=== PATIENT | male | born 1990 | race African-American/Black ===

== ENCOUNTER 2017-11-16 12:19 | Inpatient (IN) | payer MEDICARE, MEDICAID ==
[~2017-11-16] VITALS: Ht 182.9 cm; Wt 111.6 kg
[2017-11-16] MEDS ORDERED: OLAN15TA3 PO (12:37)
[2017-11-16] MEDS ORDERED: DIVA500T2 PO (12:37)
[2017-11-16] MEDS ORDERED: METF500T6 PO (12:37)
[2017-11-16] MEDS ORDERED: IV NORMAL SALINE 1000 ML BAG IV ONE ×2 (13:00→14:15)
[2017-11-16] MEDS ORDERED: ONDANSETRON 4 MG/2 ML VIAL IV ONE (13:00)
[2017-11-16 13:16] LABS: BASOPHILS % (AUTO) 0.5 % (0.0-2.0); EOSINOPHILS % (AUTO) 0.3 % (0.0-7.0); HEMATOCRIT 47.9 % (36.7-47.1); HEMOGLOBIN 16.5 g/dL (12.5-16.3); LYMPHOCYTES # (AUTO) 1.5 K/uL (20.0-40.0); LYMPHOCYTES % (AUTO) 20.2 % (20.5-51.5); MEAN CORPUSCULAR HEMOGLOBIN 32.1 uug (23.8-33.4); MEAN CORPUSCULAR HGB CONC 35 g/dL (32.5-36.3); MEAN CORPUSCULAR VOLUME 92.9 fL (73.0-96.2); MONOCYTES # (AUTO) 0.7 K/uL (2.0-10.0); MONOCYTES % (AUTO) 9.2 % (0.0-11.0); NEUTROPHILS # (AUTO) 5.3 K/uL (1.8-8.9); NEUTROPHILS % (AUTO) 69.8 % (38.5-71.5); PLATELET COUNT (AUTO) 168 K/uL (152-348); RED BLOOD CELL COUNT(AUTO) 5.16 MIL/uL (4.06-5.63); WHITE BLOOD COUNT (AUTO) 7.5 K/uL (3.6-10.2)
[2017-11-16] MEDS ORDERED: ONDANSETRON 4 MG/2 ML VIAL ONE (13:33)
--- NOTE | 2017-11-16 13:36 | NUR ---
Patient is resting comfortably on gurney. Mother is at bedside. Patient is calm & cooperative @this time.
[2017-11-16 14:07] LABS: CHLORIDE 98 mmol/L (98-107); CREATININE 1.4 mg/dL (0.6-1.3); POTASSIUM 4.1 mmol/L (3.5-5.1); UREA NITROGEN, BLOOD 11 mg/dL (7-18)
[2017-11-16 14:08] LABS: GLUCOSE 509 mg/dL (74-106)
[2017-11-16 14:09] LABS: ALANINE AMINOTRANSFERASE 15 U/L (16-63); ALKALINE PHOSPHATASE 61 U/L (50-136); BILIRUBIN,DIRECT 0.1 mg/dL (0.0-0.2); BILIRUBIN,TOTAL 0.6 mg/dL (0.2-1.0); LIPASE 102 U/L (73-393); TOTAL PROTEIN, SERUM 7.6 g/dL (6.4-8.2)
[2017-11-16 14:11] LABS: CARBON DIOXIDE 9 mmol/L (21-32)
[2017-11-16 14:24] LABS: ASPARTATE AMINOTRANSFERASE < 5 U/L (15-37)
[2017-11-16] MEDS ORDERED: IV 0.9% SODIUM CHLORID+ 20 KCL 1,000 ML IV ONE (14:24)
[2017-11-16] MEDS ORDERED: INSULIN REGULAR, HUMAN 100 UNIT in IV NORMAL SALINE 100 ML IV ONE ×2 (14:30)
[2017-11-16 14:33] LABS: *BILIRUBIN,URIN NEGATIVE (NEGATIVE); *BLOOD, URINE Trace-intact (NEGATIVE); *CLARITY,URINE CLEAR (CLEAR); *COLOR,URINE YELLOW (YELLOW); *KETONES,URINE 4+ (NEGATIVE); *PROTEIN,URINE TRACE (NEGATIVE); *UROBILINOGEN,URINE 0.2 E.U./dl (NORMAL); LEUKOCYTE ESTERASE ,URINE NEGATIVE (NEGATIVE); NITRITE, URINE NEGATIVE (NEGATIVE)
[2017-11-16 14:34] LABS: MAGNESIUM 1.8 mg/dL (1.8-2.4); PHOSPHOROUS 4.7 mg/dL (2.5-4.9); UGLUCOSE 2+ (NEGATIVE)
[2017-11-16] MEDS ORDERED: INSULIN REGULAR, HUMAN 100 UNITS in IV NORMAL SALINE 100 ML IV ONE ×2 (14:45)
[2017-11-16 14:46] LABS: BACTERIA,URINE NONE SEEN /HPF (NONE SEEN); RBC,URINE 0-3 /HPF (0-3); SQUAMOUS EPITHELIAL CELL,UR NONE SEEN /HPF (NONE SEEN); WBC,URINE 0-3 /HPF (0-3)
[2017-11-16] MEDS ORDERED: MAGNESIUM SULFATE/D5W 100 ML IV ONE (15:30)
[2017-11-16] MEDS ORDERED: IV D5W-0.45% NS +20 KCL 1,000 ML IV ONE (16:18)
--- NOTE | 2017-11-16 16:21 | NUR ---
FACILITY IN [place] WHERE PATIENT IS "CONSERVED" IS AWARE OF PENDING ADMISSION TO HOSPITAL.
[2017-11-16] MEDS: MAGNESIUM SULFATE IV SCH ×2 (17:02→17:17)
[2017-11-16] MEDS: NORMAL SALINE IV SCH ×2 (17:02→17:17)
[2017-11-16 17:04] VITALS: BP 140/83
--- NOTE | 2017-11-16 17:04 | NUR ---
Patient in from E.R. via JOSE ALFREDO aguilar. follows commands. VSS. 140/83, 98% Ra, RR 22, temp of 97.4 IV to RAC G20 infusing with insulin at 6units/hr. Accu-check of 246 poc at this time and insulin drip adjusted per protocol. IV also infusing with magnesium, and Normal saline + 20 Meq KCl at 240cc/hr. Dr. Blair called to be notified of admission awaiting orders. PT's mother at bedside.
[2017-11-16] MEDS ORDERED: MORPHINE SULFATE 2 MG/1 ML DISP.SYRIN IV PRN (17:30)
[2017-11-16] MEDS ORDERED: ACETAMINOPHEN 325 MG TABLET PO PRN (17:30)
[2017-11-16] MEDS ORDERED: LORAZEPAM 2 MG/1 ML VIAL IV PRN (17:30)
[2017-11-16] MEDS ORDERED: ONDANSETRON 4 MG/2 ML VIAL IV PRN (17:30)
[2017-11-16] MEDS ORDERED: MAG HYDROX/AL HYDROX/SIMETH 30 ML LIQUID UDC PO PRN (17:30)
[2017-11-16] MEDS: IV 1/2NS 1000 ML 1,000 ML IV PRN (17:55)
[2017-11-16 18:00] VITALS: BP 138/87
[2017-11-16] MEDS: INSULIN REGULAR, HUMAN 100 UNIT in IV NORMAL SALINE 99 ML IV PRN ×2 (19:03)
--- NOTE | 2017-11-16 19:30 | NUR ---
Report received. Patient AAOx3. NAD noted. On continuous Insulin drip per protocol. Assessment completed. PM care rendered. Patient cooperative. Addendum: 11/16/17 at 2052 by FRANCOIS LIMA RN Amended: Links added.
[2017-11-16 20:00] VITALS: BP 138/81
--- NOTE | 2017-11-16 20:00 | NUR ---
Seen by Dr. Glynn; discussed plan of care with patient. made aware of [id number]. Insulin drip increased to 5 units/H. Addendum: 11/16/17 at 2055 by FRANCOIS LIMA RN Amended: Links added. Addendum: 11/16/17 at 2056 by FRANCOIS LIMA RN Amended: Links added. Addendum: 11/16/17 at 2056 by FRANCOIS TAECHARATKIJ RN Amended: Links added.
--- NOTE | 2017-11-16 20:15 | NUR ---
Patient's mother Zoë visited with papers confirming she's the DPOA. Copy provided and in chart. Wants to talk to Dr. Glynn re: patient's care. MD notified. As per MD, he will talk to her in am. Patient's mother informed.
[2017-11-16 21:00] VITALS: BP 142/86
[2017-11-16 22:00] VITALS: BP 143/79
[2017-11-16] MEDS: BLOOD SUGAR DIAGNOSTIC 1 EACH STRIP VI SCH (22:55)
[2017-11-16 23:00] VITALS: BP 127/67
--- NOTE | 2017-11-16 23:00 | NUR ---
Dr. Glynn notified of hourly accuchecks trending down at [id number] and main IV is 1/2 NS. As per MD: continue Insulin drip and current treatments.
[2017-11-17] VITALS (22 sets, daily range): BP systolic 101–154; BP diastolic 41–76
[2017-11-17] MEDS: BLOOD SUGAR DIAGNOSTIC 1 EACH STRIP VI SCH ×24 (00:07→23:04)
[2017-11-17] MEDS: IV 1/2NS 1000 ML 1,000 ML IV PRN ×2 (04:36→16:03)
[2017-11-17 05:36] LABS: BASOPHILS % (AUTO) 0.7 % (0.0-2.0); EOSINOPHILS # (AUTO) 0.1 K/uL (0.0-0.7); EOSINOPHILS % (AUTO) 1.9 % (0.0-7.0); HEMATOCRIT 42.7 % (36.7-47.1); HEMOGLOBIN 14.8 g/dL (12.5-16.3); LYMPHOCYTES # (AUTO) 2.8 K/uL (20.0-40.0); LYMPHOCYTES % (AUTO) 40.5 % (20.5-51.5); MEAN CORPUSCULAR HGB CONC 35 g/dL (32.5-36.3); MEAN CORPUSCULAR VOLUME 92.4 fL (73.0-96.2); MONOCYTES # (AUTO) 0.8 K/uL (2.0-10.0); MONOCYTES % (AUTO) 12.1 % (0.0-11.0); NEUTROPHILS % (AUTO) 44.8 % (38.5-71.5); PLATELET COUNT (AUTO) 135 K/uL (152-348); RED BLOOD CELL COUNT(AUTO) 4.62 MIL/uL (4.06-5.63); WHITE BLOOD COUNT (AUTO) 6.8 K/uL (3.6-10.2)
[2017-11-17 05:46] LABS: BILIRUBIN,TOTAL 0.4 mg/dL (0.2-1.0); CREATININE 1.4 mg/dL (0.6-1.3); PHOSPHOROUS 2.3 mg/dL (2.5-4.9); POTASSIUM 3.9 mmol/L (3.5-5.1); TOTAL PROTEIN, SERUM 7.1 g/dL (6.4-8.2)
[2017-11-17] MEDS: PANTOPRAZOLE SODIUM 40 MG TABLET.DR PO SCH (06:35)
--- NOTE | 2017-11-17 06:46 | NUR ---
Remains on Regular Insulin drip at 2 units/H; with accuchecks hourly. Slept well during the night. VS stable. Patient's mother called; updated of condition.
--- NOTE | 2017-11-17 07:36 | NUR ---
RECEIVED A 27 Y/O MALE PT A.OX3 , A CASE OF DKA, WITH HISTORY OF ADHD, BIPOLAR. ATTACHED TO MITER CUTTER SHOWING SR, BREATHING SPONTANEOUSLY. HAS TWO IV LINE , RT AC, LT WRIST BOTH G2O, RECEIVING IVF 1/2 NS @ RATE 90ML/HR, AND INSULIN DRIP RUNNING AT 2UNITS/HR ACCORDING TO HOURLY ACCU CHECKS. URINATING FREELY.
--- NOTE | 2017-11-17 08:30 | NUR ---
received a call from [facility] human service agency, informing me that they are the conservator for this patient , all official paper has been faxed. psychiatric social worker informed
[2017-11-17] MEDS: DIVALPROEX 500 MG TABLET.DR PO SCH ×3 (08:56→17:01)
[2017-11-17] MEDS: OLANZAPINE 5 MG TABLET PO SCH ×2 (08:56→17:01)
[2017-11-17] MEDS ORDERED: NEUTRA PHOS PACKET PO ONE (11:00)
[2017-11-17] MEDS: glipiZIDE 5 MG TABLET PO SCH ×2 (12:04→17:01)
[2017-11-17] MEDS: METFORMIN HCL 500 MG TABLET PO SCH ×2 (12:04→17:10)
--- NOTE | 2017-11-17 14:00 | NUR ---
SEEN BY DR ALFONSO , PTS UPDATES GIVEN.
[2017-11-17] MEDS: INSULIN REGULAR, HUMAN 100 UNIT in IV NORMAL SALINE 99 ML IV PRN ×2 (14:23)
--- NOTE | 2017-11-17 19:30 | NUR ---
PT ALERT AWAKE IN NO ACUTE DISTRESS. REGULAR INSULIN MAINTAINED AT 3U. NO S/S OF HYPER/HYPOGLYCEMIA. ABLE TO MAKE NEEDS KNOWN. MAINTAINING IV FLUIDS 1/2 NS @90ML/HR. DENIES ANY PAIN, DIZZINESS, OR SOB. NEEDS MINIMAL ASSISTANCE WITH ADLS. REMINDED PT TO REQUEST FOR ASSISTANCE WHEN NEEDED. PT ASKED FOR COMMODE AT THIS TIME. LEADS AND PULSE OXIMETER WAS CHANGED. MOTHER AWAITING OUTSIDE. WILL CONTINUE TO MONITOR. V/S ARE WNL.
[2017-11-17] MEDS: SIMVASTATIN 20 MG TABLET PO SCH (20:22)
[2017-11-17] MEDS ORDERED: DEXTROSE 50% 50 ML DISP.SYRIN IV PRN (22:45)
[2017-11-17] MEDS: INSULIN REGULAR, HUMAN 300 UNITS/3 ML VIAL SQ PRN (23:12)
--- NOTE | 2017-11-17 23:21 | NUR ---
Insulin drip d/c per dr brown. Pt to start on regular insulin via aggressive insulin sliding scale ACHS. Recent blood sugar noted 331. 8 units Humulin R given.
[2017-11-18] VITALS (17 sets, daily range): BP systolic 108–151; BP diastolic 44–100
[2017-11-18] MEDS: IV 1/2NS 1000 ML 1,000 ML IV PRN ×2 (04:32→15:00)
[2017-11-18 05:49] LABS: BASOPHILS % (AUTO) 0.3 % (0.0-2.0); EOSINOPHILS # (AUTO) 0.1 K/uL (0.0-0.7); EOSINOPHILS % (AUTO) 1.5 % (0.0-7.0); HEMATOCRIT 41.8 % (36.7-47.1); HEMOGLOBIN 14.3 g/dL (12.5-16.3); LYMPHOCYTES # (AUTO) 2.3 K/uL (20.0-40.0); LYMPHOCYTES % (AUTO) 45.5 % (20.5-51.5); MEAN CORPUSCULAR HEMOGLOBIN 31.2 uug (23.8-33.4); MEAN CORPUSCULAR HGB CONC 34 g/dL (32.5-36.3); MONOCYTES # (AUTO) 0.5 K/uL (2.0-10.0); MONOCYTES % (AUTO) 9.1 % (0.0-11.0); NEUTROPHILS # (AUTO) 2.2 K/uL (1.8-8.9); NEUTROPHILS % (AUTO) 43.6 % (38.5-71.5); PLATELET COUNT (AUTO) 116 K/uL (152-348); WHITE BLOOD COUNT (AUTO) 5.1 K/uL (3.6-10.2)
[2017-11-18 06:10] LABS: CREATININE 1.1 mg/dL (0.6-1.3); MAGNESIUM 1.6 mg/dL (1.8-2.4); PHOSPHOROUS 2.4 mg/dL (2.5-4.9)
[2017-11-18] MEDS: PANTOPRAZOLE SODIUM 40 MG TABLET.DR PO SCH (06:38)
[2017-11-18] MEDS: BLOOD SUGAR DIAGNOSTIC 1 EACH STRIP VI SCH ×4 (06:43→20:08)
--- NOTE | 2017-11-18 07:32 | NUR ---
RECEIVED A 27 Y/O MALE PT A.OX3 , A CASE OF DKA, WITH HISTORY OF ADHD, BIPOLAR. ATTACHED TO INFANT ROOM TEACHER SHOWING SR, BREATHING SPONTANEOUSLY. HAS A RT AC G2O, RECEIVING IVF 1/2 NS @ RATE 90ML/HR, URINATING FREELY USING A URINAL.
[2017-11-18] MEDS: METFORMIN HCL 500 MG TABLET PO SCH ×2 (08:02→18:01)
[2017-11-18] MEDS: glipiZIDE 10 MG TABLET PO SCH ×2 (08:02→16:26)
[2017-11-18] MEDS: INSULIN REGULAR, HUMAN 300 UNIT/3 ML VIAL SQ PRN ×3 (08:08→16:45)
[2017-11-18] MEDS: NICOTINE 21 MG/24HR PATCH TD SCH (09:07)
[2017-11-18] MEDS: OLANZAPINE 5 MG TABLET PO SCH ×2 (09:08→16:26)
[2017-11-18] MEDS: DIVALPROEX 500 MG TABLET.DR PO SCH ×3 (09:08→16:26)
[2017-11-18] MEDS ORDERED: MAGNESIUM OXIDE 400 MG TABLET PO ONE (10:30)
[2017-11-18] MEDS: POTASSIUM PHOSPHATE MM 7.5 MMOL in IV DEXTROSE 5% 100 ML IV SCH ×2 (11:07→14:18)
--- NOTE | 2017-11-18 12:00 | NUR ---
NEW ORDER BY DR ALFONSO TO TRANSFER THE PATIENT OUT TO MED-SURGICAL UNIT. ORDER CARRIED OUT.
[2017-11-18] MEDS: LINAGLIPTIN 5 MG TABLET PO SCH (12:12)
--- NOTE | 2017-11-18 15:00 | NUR ---
PATIENT TRANSFERRED TO MED-SURGICAL UNIT VIA WHEELCHAIR .
--- NOTE | 2017-11-18 16:09 | NUR ---
PATIENT TOOK A SHOWER AND WENT BACK TO HIS ROOM. NO COMPLICATIONS
[2017-11-18] MEDS: SIMVASTATIN 20 MG TABLET PO SCH (20:08)
[2017-11-18] MEDS: INSULIN REGULAR, HUMAN 300 UNITS/3 ML VIAL SQ PRN (20:15)
--- NOTE | 2017-11-18 20:15 | NUR ---
patient in bed watching tv , awake ,alert and coherent able to verbalized needs , ivf 0.45 normal saline at 90 ml hour in progress via the right ac heplock no 20,continue to monitor vital signs and levels of comfort.
--- NOTE | 2017-11-18 20:34 | NUR ---
given sandwich as per patient request,able to feed self with good appetite,f/s done and result was 278 given ISS 6 units of regular to the right deltoid .denies pain when asked no distress noted breathing even and unlabored . hob up . urinal placed with in reach advised to used and advised to call fir assistance and to use the call montero.
[2017-11-19 03:31] VITALS: BP 124/63
[2017-11-19] MEDS: IV 1/2NS 1000 ML 1,000 ML IV PRN (04:36)
[2017-11-19 06:22] LABS: POTASSIUM 3.4 mmol/L (3.5-5.1)
[2017-11-19 06:23] LABS: MAGNESIUM 1.6 mg/dL (1.8-2.4); PHOSPHOROUS 3.8 mg/dL (2.5-4.9)
[2017-11-19] MEDS: PANTOPRAZOLE SODIUM 40 MG TABLET.DR PO SCH (06:23)
[2017-11-19] MEDS: glipiZIDE 10 MG TABLET PO SCH (06:32)
[2017-11-19] MEDS: BLOOD SUGAR DIAGNOSTIC 1 EACH STRIP VI SCH ×2 (06:33→12:06)
[2017-11-19 06:38] LABS: BASOPHILS % (AUTO) 0.6 % (0.0-2.0); EOSINOPHILS # (AUTO) 0.1 K/uL (0.0-0.7); EOSINOPHILS % (AUTO) 1.5 % (0.0-7.0); HEMATOCRIT 39.4 % (36.7-47.1); HEMOGLOBIN 13.7 g/dL (12.5-16.3); LYMPHOCYTES # (AUTO) 1.9 K/uL (20.0-40.0); LYMPHOCYTES % (AUTO) 35.2 % (20.5-51.5); MEAN CORPUSCULAR HEMOGLOBIN 31.6 uug (23.8-33.4); MEAN CORPUSCULAR HGB CONC 35 g/dL (32.5-36.3); MEAN CORPUSCULAR VOLUME 91.1 fL (73.0-96.2); MONOCYTES # (AUTO) 0.6 K/uL (2.0-10.0); MONOCYTES % (AUTO) 11.8 % (0.0-11.0); NEUTROPHILS # (AUTO) 2.7 K/uL (1.8-8.9); NEUTROPHILS % (AUTO) 50.9 % (38.5-71.5); PLATELET COUNT (AUTO) 108 K/uL (152-348); RED BLOOD CELL COUNT(AUTO) 4.33 MIL/uL (4.06-5.63); WHITE BLOOD COUNT (AUTO) 5.3 K/uL (3.6-10.2)
--- NOTE | 2017-11-19 08:00 | NUR ---
AWAKE COOPERATE NO ACUTE DISTRESS OR PAIN CONTINUE IVF ON FALL PRECAUTION CALL LIGHT IN REACH
[2017-11-19] MEDS: NICOTINE 21 MG/24HR PATCH TD SCH (08:17)
[2017-11-19] MEDS: METFORMIN HCL 500 MG TABLET PO SCH (08:17)
[2017-11-19] MEDS: LINAGLIPTIN 5 MG TABLET PO SCH (08:17)
[2017-11-19] MEDS: OLANZAPINE 5 MG TABLET PO SCH (08:17)
[2017-11-19] MEDS: DIVALPROEX 500 MG TABLET.DR PO SCH ×2 (08:18→12:05)
[2017-11-19] MEDS: INSULIN REGULAR, HUMAN 300 UNIT/3 ML VIAL SQ PRN ×2 (08:19→12:04)
[2017-11-19 11:00] VITALS: BP 132/75
--- NOTE | 2017-11-19 12:00 | NUR ---
D/C JENI BACK TO [facility] TODAY WORKING BY HEALTH COMMUNICATIONS SPECIALIST FOR BED AVAILABLE
[2017-11-19] MEDS ORDERED: POTASSIUM CHLORIDE 20 MEQ TAB.PRT.SR PO ONE (13:00)
[2017-11-19] MEDS ORDERED: MAGNESIUM OXIDE 400 MG TABLET PO ONE (13:00)
[2017-11-19] MEDS ORDERED: ACET325T53 PO (13:37)
[2017-11-19] MEDS ORDERED: INSU100V28 SQ ×2 (13:37)
[2017-11-19] MEDS ORDERED: SIMV20TA6 PO (13:37)
[2017-11-19] MEDS ORDERED: MAG30ORA PO (13:37)
[2017-11-19] MEDS ORDERED: METF500T6 PO (13:37)
[2017-11-19] MEDS ORDERED: GLIP10TA11 PO (13:37)
[2017-11-19] MEDS ORDERED: Blood Sugar Diagnostic VI (13:37)
[2017-11-19] MEDS ORDERED: PANT40TA2 PO (13:37)
[2017-11-19] MEDS ORDERED: LINA5TAB PO (13:37)
[2017-11-19] MEDS ORDERED: DEXT50DI8 IV (13:37)
[2017-11-19] MEDS ORDERED: NICO-672 TD (13:37)
[2017-11-19] MEDS ORDERED: OLAN5TAB3 PO (13:37)
--- NOTE | 2017-11-19 14:30 | NUR ---
D/C INSTRUCTION REGARDING D/C TO SNF WITH ORDER EXPLAINED TO PATIENT AND DPOA WAS INFORM BY SENIOR DATABASE PROGRAMMER OF DISCHARGE TODAY D/C SHEET SIGNS HL WAS D/C PRIOR D/C AND REPORT GIVEN TO NURSE AT SNF [facility] "[facility]" VIA TEL CONDITION STABLE
[2017-11-19 15:00] VITALS: BP 140/86
--- NOTE | 2017-11-19 16:45 | NUR ---
D/C TO SNF VIA AMBULANCE CONDITION STABLE
== END 2017-11-19 16:45 | DRG 637 ==
LOC: ER 12:23 → CCU 16:24 → MED 11-18 15:32
PROVIDERS: ADMIT Internal Medicine; ATTEND Internal Medicine
DX: E11.10 Type 2 diabetes mellitus with ketoacidosis without coma (principal); G92 Toxic encephalopathy; E87.1 Hypo-osmolality and hyponatremia; Z79.84 Long term (current) use of oral hypoglycemic drugs; E66.9 Obesity, unspecified; Z68.32 Body mass index [BMI] 32.0-32.9, adult; F31.9 Bipolar disorder, unspecified; Z79.899 Other long term (current) drug therapy; Z83.3 Family history of diabetes mellitus; F17.210 Nicotine dependence, cigarettes, uncomplicated; E78.5 Hyperlipidemia, unspecified; F99 Mental disorder, not otherwise specified
CPT/HCPCS: 36415; 80164; 83690; 83735; 84100; 85025; 93005; A4663; J1815; J2405; J3475; J3490; J7030; J7060

== ENCOUNTER 2020-06-04 16:51 | Emergency (ER) | payer MEDICARE, OTHER ==
[~2020-06-04] VITALS: Ht 182.9 cm; Wt 104.3 kg
[~2020-06-04 16:51] MED LIST: ACET325T53 PO; Blood Sugar Diagnostic VI; DEXT50DI8 IV; DIVA500T2 PO; GLIP10TA11 PO; INSU100V28 SQ; LINA5TAB PO; MAG30ORA PO; METF-440 PO; NICO-780 TD; OLAN15TA3 PO; OLAN5TAB3 PO; PANT40TA2 PO; SIMV-46 PO
--- NOTE | 2020-06-04 17:00 | NUR ---
Dr Breaux at bedside for MSE.
[2020-06-04] MEDS: IV NORMAL SALINE 1000 ML BAG IV ONE (17:30)
[2020-06-04 17:32] LABS: BASOPHILS % (AUTO) 0.2 % (0.0-2.0); EOSINOPHILS # (AUTO) 0.1 K/uL (0.0-0.7); EOSINOPHILS % (AUTO) 0.5 % (0.0-7.0); HEMATOCRIT 46.7 % (36.7-47.1); HEMOGLOBIN 15.8 g/dL (12.5-16.3); LYMPHOCYTES # (AUTO) 1.9 K/uL (20.0-40.0); LYMPHOCYTES % (AUTO) 15.3 % (20.5-51.5); MEAN CORPUSCULAR HEMOGLOBIN 30.7 uug (23.8-33.4); MEAN CORPUSCULAR HGB CONC 34 g/dL (32.5-36.3); MEAN CORPUSCULAR VOLUME 90.7 fL (73.0-96.2); MONOCYTES # (AUTO) 1.2 K/uL (2.0-10.0); MONOCYTES % (AUTO) 9.8 % (0.0-11.0); NEUTROPHILS % (AUTO) 74.2 % (38.5-71.5); PLATELET COUNT (AUTO) 217 K/uL (152-348); RED BLOOD CELL COUNT(AUTO) 5.15 MIL/uL (4.06-5.63); WHITE BLOOD COUNT (AUTO) 12.2 K/uL (3.6-10.2)
[2020-06-04] MEDS: LORAZEPAM 2 MG/1 ML VIAL IV ONE (17:36)
[2020-06-04] MEDS ORDERED: LORAZEPAM 2 MG/1 ML VIAL ONE (17:38)
[2020-06-04 17:44] LABS: ETHANOL < 3 MG/DL (0-0)
[2020-06-04 17:50] LABS: ACETAMINOPHEN < 2.0 ug/mL (10-30); ALANINE AMINOTRANSFERASE 35 U/L (16-63); ALKALINE PHOSPHATASE 72 U/L (50-136); ASPARTATE AMINOTRANSFERASE 25 U/L (15-37); BILIRUBIN,DIRECT 0.2 mg/dL (0.0-0.2); BILIRUBIN,TOTAL 0.7 mg/dL (0.2-1.0); CARBON DIOXIDE 27 mmol/L (21-32); CHLORIDE 97 mmol/L (98-107); CREATINE KINASE, TOTAL 522 U/L (39-308); CREATININE 1.2 mg/dL (0.6-1.3); GLUCOSE 60 mg/dL (74-106); POTASSIUM 3.5 mmol/L (3.5-5.1); TOTAL PROTEIN, SERUM 8.4 g/dL (6.4-8.2); UREA NITROGEN, BLOOD 19 mg/dL (7-18)
--- NOTE | 2020-06-04 18:31 | NUR ---
IV fluids finished, Ativan also administered abut an hour ago. Pt still tachycardic at 113.
--- NOTE | 2020-06-04 18:57 | NUR ---
Pt slightly drowsy from the Ativan, but easily arousable. Pt still unable to produce urine sample.
--- NOTE | 2020-06-04 23:46 | NUR ---
Patient is cleared for discharge per Dr. Bobo. Vitasls are stable. HR 96.
--- NOTE | 2020-06-05 05:20 | NUR ---
IV removed. Catheter intact and site benign. Pressure and 4x4 gauze applied to site. No bleeding noted.
--- NOTE | 2020-06-05 05:21 | NUR ---
Patient discharged to home in stable condition. Written and verbal after care instructions given. Patient verbalizes understanding of instructions. Stressed follow up or return to ER for worsening s/s. Patient is stable for discharge. Patient was given sandwiches and juice. He lives with his mother. Patient is awake, alert, oriented x 3. Walks with steady gait. Appears in no distress.
[2020-06-05 05:22] VITALS: BP 111/69
== END 2020-06-05 05:23 | disposition home or self-care (01) ==
LOC: ER 16:53
DX: R41.82 Altered mental status, unspecified (principal); F29 Unspecified psychosis not due to a substance or known physiological condition; R00.0 Tachycardia, unspecified; Z59.0 Homelessness; Z20.822 Contact with and (suspected) exposure to COVID-19; E11.9 Type 2 diabetes mellitus without complications; F84.0 Autistic disorder; F90.9 Attention-deficit hyperactivity disorder, unspecified type; F31.9 Bipolar disorder, unspecified; Z79.84 Long term (current) use of oral hypoglycemic drugs; Z79.899 Other long term (current) drug therapy; F15.90 Other stimulant use, unspecified, uncomplicated
CPT/HCPCS: 36415; 80048; 80076; 80299; 80320; 82550; 82962 ×2; 85025; 87426; 93005; 96361; 96374; 99284; J2060; A4663; G0480; J7030

== ENCOUNTER 2020-06-05 23:24 | Emergency (ER) | payer MEDICARE, OTHER ==
[~2020-06-05] VITALS: Ht 182.9 cm; Wt 104.3 kg
[~2020-06-05 23:24] MED LIST changes: -DEXT50DI8 IV; -INSU100V28 SQ; -LINA5TAB PO; -MAG30ORA PO; -NICO-780 TD
--- NOTE | 2020-06-05 23:47 | NUR ---
Patient muttering to himself, sitting upright on bed. Patient requested to have blood sugar taken, and it was 158.
--- NOTE | 2020-06-06 00:07 | NUR ---
CALLED PT MOTHER, ADRIANNE DAVALOS, TO SEE IF THE PT CAN GO HOME. PT MOTHER UNABLE TO PROVIDE A MEANINGFULL ANSWER, KEEP REPEATING THAT THE PT WAS IN FASCILTITY YESTERDAY UNDER CARE OF A DOCTOR, BUT DID NOT DISCLOSE THE NAME OF THE FASCILITY/DOCTOR.
--- NOTE | 2020-06-06 00:10 | NUR ---
polysomnograph tech in room to draw blood from patient.
[2020-06-06 00:24] LABS: BASOPHILS % (AUTO) 0.2 % (0.0-2.0); EOSINOPHILS # (AUTO) 0.1 K/uL (0.0-0.7); EOSINOPHILS % (AUTO) 1.2 % (0.0-7.0); HEMATOCRIT 44.7 % (36.7-47.1); HEMOGLOBIN 14.9 g/dL (12.5-16.3); LYMPHOCYTES # (AUTO) 1.9 K/uL (20.0-40.0); LYMPHOCYTES % (AUTO) 24.6 % (20.5-51.5); MEAN CORPUSCULAR HEMOGLOBIN 30.4 uug (23.8-33.4); MEAN CORPUSCULAR HGB CONC 33 g/dL (32.5-36.3); MEAN CORPUSCULAR VOLUME 91.4 fL (73.0-96.2); MONOCYTES % (AUTO) 12.6 % (0.0-11.0); NEUTROPHILS # (AUTO) 4.7 K/uL (1.8-8.9); NEUTROPHILS % (AUTO) 61.4 % (38.5-71.5); PLATELET COUNT (AUTO) 203 K/uL (152-348); RED BLOOD CELL COUNT(AUTO) 4.89 MIL/uL (4.06-5.63); WHITE BLOOD COUNT (AUTO) 7.6 K/uL (3.6-10.2)
[2020-06-06 00:34] LABS: ETHANOL < 3 MG/DL (0-0)
[2020-06-06 00:35] LABS: CARBON DIOXIDE 28 mmol/L (21-32); CHLORIDE 104 mmol/L (98-107); CREATININE 0.9 mg/dL (0.6-1.3); GLUCOSE 95 mg/dL (74-106); POTASSIUM 3.4 mmol/L (3.5-5.1); UREA NITROGEN, BLOOD 15 mg/dL (7-18)
[2020-06-06 00:48] LABS: ALANINE AMINOTRANSFERASE 34 U/L (16-63); ALKALINE PHOSPHATASE 64 U/L (50-136); ASPARTATE AMINOTRANSFERASE 26 U/L (15-37); BILIRUBIN,DIRECT 0.1 mg/dL (0.0-0.2); BILIRUBIN,TOTAL 0.3 mg/dL (0.2-1.0); TOTAL PROTEIN, SERUM 7.6 g/dL (6.4-8.2)
[2020-06-06 00:49] LABS: ACETAMINOPHEN < 2.0 ug/mL (10-30)
[2020-06-06 00:50] LABS: *BLOOD, URINE NEGATIVE (NEGATIVE); *CLARITY,URINE CLEAR (CLEAR); *COLOR,URINE YELLOW (YELLOW); *KETONES,URINE TRACE (NEGATIVE); *UROBILINOGEN,URINE 0.2 E.U./dl (NORMAL); LEUKOCYTE ESTERASE ,URINE NEGATIVE (NEGATIVE); NITRITE, URINE NEGATIVE (NEGATIVE); PH,URINE 5.5 (5.0-8.0); UGLUCOSE TRACE (NEGATIVE)
[2020-06-06 00:51] LABS: *BILIRUBIN,URIN 1+ (NEGATIVE)
[2020-06-06 00:56] LABS: BACTERIA,URINE NONE SEEN /HPF (NONE SEEN); MUCUS,URINE FEW /LPF (0-FEW); RBC,URINE 0-3 /HPF (0-3); SQUAMOUS EPITHELIAL CELL,UR FEW /HPF (NONE SEEN); WBC,URINE 0-3 /HPF (0-3)
--- NOTE | 2020-06-06 01:00 | NUR ---
Note german in EDM - 06/06/20 at 0101 by RADHA Patient discharged to home in stable condition. Written and verbal after care instructions given. Patient verbalizes understanding of instructions. Stressed follow up or return to ER for worsening s/s. Patient ambulates with steady gait, received thumb spica & sling, and left with all personal belongings.
[2020-06-06 01:02] LABS: *AMPHETAMINE, URINE POSITIVE (NEGATIVE); *CANNABINOID, URINE POSITIVE (NEGATIVE); *COCCAINE, URINE NEGATIVE (NEGATIVE); *OPIATE, URINE NEGATIVE (NEGATIVE); *PHENCYCLIDINE SCREEN,URINE NEGATIVE (NEGATIVE)
--- NOTE | 2020-06-06 01:34 | NUR ---
Felicia porter in ED - 06/06/20 at 0147 by RADHA Called JOSE Turcios for PSYCH evaluation, states ETA will be 2 hours.
--- NOTE | 2020-06-06 01:47 | NUR ---
JBOSS DEVELOPER Art contacted, states the psych consult can be done at 8-9am d/t patient urine labs positive for amphetamines.
[2020-06-06] MEDS ORDERED: OLANZAPINE 5 MG TABLET PO ONE (02:00)
--- NOTE | 2020-06-06 02:30 | NUR ---
Patient dropped med ZYPREXA on floor. Wasted on pyxis. He was given a replacement.
[2020-06-06] MEDS ORDERED: OLANZAPINE 5 MG TABLET ONE ×2 (02:33→02:36)
--- NOTE | 2020-06-06 03:30 | NUR ---
pt sleeping on bed, eyes closed, no acute distress noted
--- NOTE | 2020-06-06 05:00 | NUR ---
Patient is resting on bed, eyes closed. No acute distress is noted at this time.
--- NOTE | 2020-06-06 06:00 | NUR ---
Patient given food and drink, ok per MD Moreland.
--- NOTE | 2020-06-06 06:35 | NUR ---
AM blood sugar taken per MD Moreland it is 94.
--- NOTE | 2020-06-06 06:44 | NUR ---
Dietary called, patient will be receiving a diabetic diet food tray.
--- NOTE | 2020-06-06 06:47 | NUR ---
Report given to JOSE Ortega.
[2020-06-06] MEDS ORDERED: POTASSIUM CHLORIDE 20 MEQ TAB.PRT.SR PO ONE (07:00)
--- NOTE | 2020-06-06 07:20 | NUR ---
PT IS SLEEPING COMFORTABLY IN BED #2A. PT's TRANSFER PAPERWORK WAS FAXED TO [facility] ([phone]) ACCORDING TO DR INGRID POTTER.. TALKED TO BHUMI FROM INTAKE UNIT.
[2020-06-06] MEDS ORDERED: POTASSIUM CHLORIDE 20 MEQ TAB.PRT.SR ONE (07:25)
--- NOTE | 2020-06-06 08:10 | NUR ---
[facility]ISIS GUEST SERVICES DIRECTOR BOLIVAR, WAS CALLED TO EVALUATED THE PT. BRENT[place] IS 1.5 HOUR.
--- NOTE | 2020-06-06 09:18 | NUR ---
LUCRECIA, FROM [facility] [address] ([phone]) CALLED WITH INFORMATION , PT IS #1 NOW ON WAITING LIST TO BE PLACED TO THE HOSPITAL. SHE WILL MARITA LATER WITH UPDATES.
--- NOTE | 2020-06-06 09:42 | NUR ---
CRISIS AMMONIA PRINT OPERATOR BOLIVAR CAME TO EVALUATE THE PT. HE TALKED ON THE PHONE WITH [facility] CREW CHIEF BOLIVAR, ABOUT PT ADMISSION AND TRANSFER TO [facility] [address]. HE STATED THAT HE IS GOING TO COME BACK TO EVALUATE THE PT IN 2 HOURS.
--- NOTE | 2020-06-06 10:20 | NUR ---
CRISIS CONTRACTOR BUYER BOLIVAR TALKED TO THE PT. ACCORDING TO HIM PT CAN BE TRANSFERED TO [facility] [address] VOLUNTARY ADMISSION. DR QUINTERO WAS NOTIFIED AND TALKED TO ART ABOU PT's CASE. BOLIVAR SPOKE TO [facility] FOOD AND BEVERAGE MANAGER BY THE PHONE. LUCRECIA , FROM [facility] [address] CALLED WITH TRANSFER INFORMATION. PT IS GOING TO BE ACCEPTED BY DR FOWLER, NUMBER TO CALL REPORT IS: [phone] ASK FOR JOSE GARCIA. [facility] AMBULANCE WAS CALLED. [place] IS 1 HOUR.
--- NOTE | 2020-06-06 11:41 | NUR ---
PT WAS TRANSFERED TO [facility] [address] VIA [facility] AMBULANCE. REPORT WAS GIVEN TO AMBULANCE EMT AND TO [facility] JOSE GARCIA.
== END 2020-06-06 12:00 ==
LOC: ER 23:27
DX: F23 Brief psychotic disorder (principal); F15.20 Other stimulant dependence, uncomplicated; F12.20 Cannabis dependence, uncomplicated; Z59.0 Homelessness; E87.6 Hypokalemia; F19.10 Other psychoactive substance abuse, uncomplicated; Z20.822 Contact with and (suspected) exposure to COVID-19; E11.9 Type 2 diabetes mellitus without complications; Z79.84 Long term (current) use of oral hypoglycemic drugs; F90.9 Attention-deficit hyperactivity disorder, unspecified type; F84.0 Autistic disorder; F31.9 Bipolar disorder, unspecified
CPT/HCPCS: 36415; 70030-TC; 71045; 83735; 85025; 93005; A4663; G0480